=== PATIENT | male | born 1950 | race Caucasian/White ===

== ENCOUNTER 2019-05-15 08:12 | Emergency (ER) | payer OTHER ==
[~2019-05-15] VITALS: Ht 172.7 cm; Wt 77.1 kg
--- NOTE | ~2019-05-15 | EKG ---
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
[~2019-05-15 08:12] MED LIST: ANDRODERM2.5 MG/24 TD; ATIVAN0.5 MG PO; B-1100 MG PO; BENADRYL25 MG/10 M PO; CLONAZEPAM2 MG PO; DESYREL100 MG PO; FOLIC ACID1 MG PO; LIBRIUM10 MG PO; LIBRIUM25 MG PO; LISINOPRIL20 MG PO; LITHIUM CARBON300 MG PO; METROCREAM0.75% TP; MINOCYCLINE100 MG PO; MULTIPLE VITAMI1 CAP PO; NORCO 325 MG-101 TAB PO; PROTONIX40 MG PO; PROZAC10 MG PO; PROZAC20 MG PO; Synthroid,Levo50 MCG PO; TRAZADONE HYDR100 MG PO; TRILIPIX45 M1 PO; VOLTAREN1% TP; ZESTRIL,PRINIVI10 MG PO; ZOFRAN ODT4 MG SL
[2019-05-15 08:28] LABS: BASO # 0.1 10*3/uL (0.0-0.1); BASO % 1.1 % (0.0-1.0); EOS # 0.5 10*3/uL (0.0-0.4); HEMATOCRIT 51.2 % (42.0-52.0); HEMOGLOBIN 17.1 g/dl (14.0-18.0); LYMPH # 1.7 10*3/uL (1.3-4.4); MEAN CORPUSCULAR HGB 33.4 pg (27.0-31.0); MEAN CORPUSCULAR HGB CONC 33.4 g/dl (33.0-37.0); MEAN PLATELET VOLUME 10.2 fl (9.6-12.3); MONO % 12.7 % (3.0-9.0); NEUT # 4.6 10*3/uL (2.3-7.9); NEUT % 58.8 % (47.0-73.0); PLATELET COUNT AUTOMATED 194 10*3/uL (130-400); RED BLOOD COUNT 5.12 10*6/uL (4.50-5.90); RED CELL DISTRI WIDTH 11.4 % (0-14.5); WHITE BLOOD COUNT 7.9 10*3/uL (4.8-10.8)
[2019-05-15 08:39] LABS: ACT PARTIAL THROMBO TIME 27.9 SECONDS (20.0-32.1)
[2019-05-15 08:43] LABS: ALBUMIN 3.3 gm/dl (3.1-4.5); ALKALINE PHOSPHATASE 76 U/L (45-117); BUN 10 mg/dl (7-24); CHLORIDE 100 mmol/L (98-107); CREATININE 0.87 mg/dL (0.70-1.30); POTASSIUM 3.7 mmol/L (3.5-5.1); SGOT/AST 35 IU/L (3-35); SGPT/ALT 37 U/L (12-78); SODIUM 134 mmol/L (136-145)
[2019-05-15 08:45] LABS: TROPONIN I < 0.015 ng/ml (<0.045)
== END 2019-05-15 12:09 | disposition left against medical advice (07) ==
LOC: ED 08:12
PROVIDERS: Emergency Medicine
DX: R07.9 Chest pain, unspecified (principal); R51 Headache; M25.511 Pain in right shoulder; M25.512 Pain in left shoulder; M79.602 Pain in left arm; M79.601 Pain in right arm; R61 Generalized hyperhidrosis; E78.5 Hyperlipidemia, unspecified; Z79.899 Other long term (current) drug therapy; Z88.8 Allergy status to other drugs, medicaments and biological substances; Z96.652 Presence of left artificial knee joint

== ENCOUNTER 2019-05-17 07:53 | Inpatient (IN) | payer OTHER ==
[~2019-05-17] VITALS: Ht 172.7 cm; Wt 84.5 kg
[2019-05-17 08:00] VITALS: BP 127/78
[2019-05-17 08:13] LABS: BASO # 0.1 10*3/uL (0.0-0.1); BASO % 1.2 % (0.0-1.0); EOS # 0.7 10*3/uL (0.0-0.4); EOS % 8.3 % (1.0-4.0); HEMOGLOBIN 17.8 g/dl (14.0-18.0); LYMPH # 2.1 10*3/uL (1.3-4.4); LYMPH % 25.8 % (27.0-41.0); MEAN CELL VOLUME 100.4 fl (80.0-94.0); MEAN CORPUSCULAR HGB 33.7 pg (27.0-31.0); MEAN CORPUSCULAR HGB CONC 33.6 g/dl (33.0-37.0); MEAN PLATELET VOLUME 10.2 fl (9.6-12.3); MONO # 1.1 10*3/uL (0.1-1.0); MONO % 13.3 % (3.0-9.0); NEUT # 4.2 10*3/uL (2.3-7.9); PLATELET COUNT AUTOMATED 209 10*3/uL (130-400); RED BLOOD COUNT 5.28 10*6/uL (4.50-5.90); RED CELL DISTRI WIDTH 11.5 % (0-14.5); WHITE BLOOD COUNT 8.2 10*3/uL (4.8-10.8)
[2019-05-17 08:31] LABS: ALBUMIN 3.6 gm/dl (3.1-4.5); ALKALINE PHOSPHATASE 78 U/L (45-117); BUN 5 mg/dl (7-24); CHLORIDE 99 mmol/L (98-107); CREATININE 0.83 mg/dL (0.70-1.30); POTASSIUM 3.8 mmol/L (3.5-5.1); SGOT/AST 43 IU/L (3-35); SGPT/ALT 40 U/L (12-78); SODIUM 135 mmol/L (136-145); TOTAL PROTEIN 7.6 gm/dL (6.4-8.2)
[2019-05-17 08:33] LABS: TROPONIN I < 0.015 ng/ml (<0.045)
--- NOTE | 2019-05-17 09:30 | NUR ---
A 69, admitted to , under the services of ROGELIO Morataya DO with a diagnosis of CHEST PAIN. Chief complaint is CHEST PAIN. Patient arrived via stretcher from ER. Monitor applied. Initial assessment completed. Vital signs taken and recorded. ROGELIO MORATAYA DO notified of admission to the unit. See assessment for past medical history, medications and allergies. Patient and/or family oriented to unit. [facility]. Clothing/patient valuable form completed. BARRY SPEARS
[2019-05-17 09:45] VITALS: BP 135/87
--- NOTE | 2019-05-17 09:49 | NUR ---
DR. SYED NOTIFIED OF ADMISSION. NOTIFIED THAT PATIENT STATES HE DOES NOT TAKE ANY HOME MEDICATIONS ON A DAILY BASIS. PT NOW STATING THAT HE HAD A LARGE BOWEL MOVEMENT THIS AM AND " THERE WAS BRIGHT RED BLOOD EVERYWHERE" PT COMPLAINS OF RIGHT LOWER QUAD PAIN. DR. SYED TO PLACE ORDERS FOR CT SCAN
[2019-05-17 12:00] VITALS: BP 142/91
--- NOTE | 2019-05-17 14:59 | NUR ---
PT COMPLAIN OF HEADACHE, TYLENOL GIVEN.
[2019-05-17 16:00] VITALS: BP 143/83
--- NOTE | 2019-05-17 16:27 | NUR ---
dr. valdes notified of new consult to dr. tirado for chest pain
--- NOTE | 2019-05-17 17:13 | NUR ---
pt complain of continued pain left shoulder, chest and headache. morphione given
--- NOTE | 2019-05-17 17:55 | NUR ---
morphine effective for pain
--- NOTE | 2019-05-17 19:30 | NUR ---
PATIENT RESTING IN BED WATCHING TV. DENIES CHEST PAIN OR SHORTNESS OF BREATH AT THIS TIME. NO NEEDS MADE. BED IN LOWEST POSITION, CALL LIGHT IN REACH
[2019-05-17 20:00] VITALS: BP 134/86
--- NOTE | 2019-05-17 23:28 | NUR ---
MEDICATED WITH PRN MORPHINE FOR C/O CHEST AND LEFT SHOULDER PAIN. WILL MONITOR
[2019-05-18] VITALS: BP 127/89
--- NOTE | 2019-05-18 03:10 | NUR ---
PATIENT RESTING IN BED WITH EYES CLOSED. RESPS EASY AND REGULAR. EARLIER MEDICATION SEEMS EFFECTIVE
--- NOTE | 2019-05-18 06:07 | NUR ---
MEDICATED WITH PRN MORPHINE FOR C/O LEFT SHOULDER AND CHEST PAIN. WILL MONITOR
[2019-05-18 07:06] LABS: BASO # 0.1 10*3/uL (0.0-0.1); BASO % 1.1 % (0.0-1.0); EOS # 0.7 10*3/uL (0.0-0.4); EOS % 8.5 % (1.0-4.0); HEMATOCRIT 52.2 % (42.0-52.0); LYMPH # 1.3 10*3/uL (1.3-4.4); LYMPH % 15.6 % (27.0-41.0); MEAN CELL VOLUME 98.3 fl (80.0-94.0); MEAN CORPUSCULAR HGB 33.9 pg (27.0-31.0); MEAN CORPUSCULAR HGB CONC 34.5 g/dl (33.0-37.0); MEAN PLATELET VOLUME 10.7 fl (9.6-12.3); MONO # 1.1 10*3/uL (0.1-1.0); MONO % 13.6 % (3.0-9.0); NEUT % 60.6 % (47.0-73.0); PLATELET COUNT AUTOMATED 204 10*3/uL (130-400); RED BLOOD COUNT 5.31 10*6/uL (4.50-5.90); RED CELL DISTRI WIDTH 11.4 % (0-14.5); WHITE BLOOD COUNT 8.3 10*3/uL (4.8-10.8)
[2019-05-18 07:20] LABS: BUN 11 mg/dl (7-24); CHLORIDE 98 mmol/L (98-107); POTASSIUM 4.1 mmol/L (3.5-5.1); SODIUM 131 mmol/L (136-145)
[2019-05-18 07:32] LABS: CHOLESTEROL 153 mg/dL (<200); CREATININE 0.84 mg/dL (0.70-1.30); HDL CHOLESTEROL 51 mg/dl (40-60); LDL CHOLESTEROL 76 mg/dL (9-159); PHOSPHOROUS 3.4 mg/dL (2.5-4.9); TRIGLYCERIDES 132 mg/dl (<150); VLDL CHOLESTEROL 26 mg/dL (6-40)
--- NOTE | 2019-05-18 07:43 | NUR ---
PHYSICAL THERAPY PT SCREEN COMPLETED TODAY ON LEVEL 4: PATIENT IS UP AD WADE IN ROOM AND TO BATHROOM WITH NO ISSUES AND NO PT SERVICES ARE INDICATED AT THIS TIME. THANK YOU FOR REFERRAL YAKELIN LI PT
[2019-05-18 08:00] VITALS: BP 142/94
--- NOTE | 2019-05-18 08:00 | NUR ---
PATIENT C/O PAIN ACROSS CHEST/BILATERAL SHOULDERS AND OCCASIONALLY JAW PAIN. DIAPHORETIC. SLIGHTLY SHORT OF BREATH AT REST. POX 94% RA. O2 APPLIED AT 2L. AWARE.
--- NOTE | 2019-05-18 09:00 | NUR ---
Shape Hand in to talk to patient. Patient states lives at home with . There are few steps in the home. Physician: tuyet chun Pharmacy: mail Home health services: none Patient's level of ADLs: INDEPENDENT Patient has working utilities: all working DME: none Follow-up physician's appointment after d/c: will be made by [facility] nurse director upon discharge Does patient want to access PORTAL?: no Discharge plan discussed with patient. he lives at home with his , he is independent in adls and ambulation, works, drives, he states he will return home when able and denies any home needs JADEN GRIFFITHS
[2019-05-18 09:56] LABS: BILIRUBIN NEGATIVE (NEGATIVE); BLOOD NEGATIVE (NEGATIVE); CLARITY SL CLOUDY (CLEAR); COLOR YELLOW (YELLOW); GLUCOSE NEGATIVE (NEGATIVE); KETONE NEGATIVE (NEGATIVE); LEUKO ESTERASE NEGATIVE (NEGATIVE); NITRITE NEGATIVE (NEGATIVE); SPECIFIC GRAVITY 1.015 (1.005-1.030); UROBILINOGEN 0.2 E.U./dl (0.2-1.0)
[2019-05-18 11:24] LABS: EPITHELIAL CELLS 0-2; WBC 0-2 wbc/hpf (0-5)
[2019-05-18 12:00] VITALS: BP 139/87
--- NOTE | 2019-05-18 12:38 | NUR ---
PATIENT C/O PAIN ACROSS CHEST AND SHOULDERS. MEDICATED WITH MORPHINE SULFATE PER PRN ORDER. WILL CONTINUE TO MONITOR.
--- NOTE | 2019-05-18 14:00 | NUR ---
PATIENT RESTING QUIETLY. NO FURTHER C/O PAIN. MORPHINE EFFECTIVE.
--- NOTE | 2019-05-18 15:02 | NUR ---
Occupational THerapy referral received and screen completed. Patient reports that he is independent in all ADLs and mobility and does not need any therapy. He is talkative, pleasant and reports that he is having a stress test 05/19/19 andwill be having a vascular consult to leg pain and feet numbness. Discharge OT referral per patient's request. Thank you. Elsie Fuller OTR/Kaitlin
[2019-05-18] MEDS ORDERED: LEVAQUIN750 M1 PO (17:06)
[2019-05-18] MEDS ORDERED: VITAMIN D32000 UNI1 PO (17:06)
[2019-05-18] MEDS ORDERED: NORCO 5-325 TA1 EACH PO (17:06)
--- NOTE | 2019-05-18 18:00 | NUR ---
PATIENT DISCHARGED TO HOME. ALL PERSONAL BELONGINGS SENT WITH PATIENT. 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 DISCHARGE INSTRUCTIONS AND PRESCRIPTIONS GIVEN AND REVIEWED WITH PATIENT. PATIENT INFORMED OF FOLLOW UP APPOINTMENT WITH SANTOS MEYERS ON 05/25 AT 10AM.
== END 2019-05-18 18:00 | disposition home or self-care (01) | DRG 377 ==
LOC: ED 07:53 → 4E 08:50 → EDHOLD 08:50 → 4E 09:09
PROVIDERS: Emergency Medicine; Student in an Organized Health Care Education/Training Program; ADMIT Internal Medicine
DX: K92.2 Gastrointestinal hemorrhage, unspecified (principal); J18.9 Pneumonia, unspecified organism; E87.1 Hypo-osmolality and hyponatremia; R07.89 Other chest pain; R10.32 Left lower quadrant pain; I10 Essential (primary) hypertension; Z96.652 Presence of left artificial knee joint; F43.10 Post-traumatic stress disorder, unspecified; K21.9 Gastro-esophageal reflux disease without esophagitis; F10.129 Alcohol abuse with intoxication, unspecified; Z71.6 Tobacco abuse counseling; Z72.0 Tobacco use; Z88.8 Allergy status to other drugs, medicaments and biological substances; Z90.49 Acquired absence of other specified parts of digestive tract; Z82.49 Family history of ischemic heart disease and other diseases of the circulatory system; Z80.8 Family history of malignant neoplasm of other organs or systems